=== PATIENT | male | born 1960 | race Caucasian/White ===

== ENCOUNTER 2017-09-06 15:22 | Inpatient (IN) | payer MEDICAID ==
[2017-09-06] MEDS ORDERED: IPRATROPIUM/ALBUTEROL 3 ML DEYVIAL ONE (15:42)
[2017-09-06 15:59] LABS: PLATELET COUNT 227 10^3/uL (150-400)
--- NOTE | 2017-09-06 15:59 | EDPHY ---
H & P Smoking Status: Former smoker Time Seen by Provider: 09/06/17 15:36 HPI/ROS: CHIEF COMPLAINT: Dyspnea HISTORY OF PRESENT ILLNESS: 57-year-old male presents to the emergency department by private vehicle feeling short of breath. The patient has a history of HIV and has a history of COPD. He is on 3 L of continuous oxygen. He recently establish care with [facility] who restarted him on his HIV medication, Descovy and Tivicay. He has taken these medications in the past, however since restarting his medications last week he feels acutely more short of breath. He has not noticed any fevers or chills. He states that he has felt short of breath and has had ongoing cough for several weeks. He had pneumonia in May of 2017. He feels that his dyspnea has been getting acutely worse. He is unable to walk down the kelly to his bathroom without becoming short of breath and having to hold onto something. He did receive a flu shot this year. REVIEW OF SYSTEMS: Constitutional: No fever, no chills. Eyes: No double or blurry vision. ENT: No sore throat. Respiratory: Cough, shortness of breath Cardiac: No chest pain. Gastrointestinal: No abdominal pain, vomiting or diarrhea. Genitourinary: No dysuria. Musculoskeletal: No neck or back pain. Skin: No rashes. Neurological: No headache. (Latisha Cobb) Past Medical/Surgical History: HIV, COPD, on 3L continuous O2 (Latisha Cobb) Social History: Single (Latisha Cobb) Physical Exam: General Appearance: Alert, no distress. 141/90, 100% on 4 L of nasal cannula oxygen, heart rate 104, respirations 26. Patient is tachypneic. Eyes: Pupils equal and round. Extraocular motions are all intact. ENT: Mouth: Mucous membranes moist. Respiratory: Occasional expiratory wheeze. Decreased breath sounds throughout. Cardiovascular: Regular rate and rhythm. Gastrointestinal: Abdomen is soft and nontender, no masses, no rebound or guarding, bowel sounds normal. Neurological: Alert and oriented x 3, cranial nerves II through XII grossly intact Skin: Warm and dry, no rashes. Musculoskeletal: Nontender to palpate along the cervical, thoracic or lumbar spine. Neck is supple. Extremities: Full range of motion and no peripheral edema. Psychiatric: Patient is oriented X 3, there is no agitation. (Latisha Cobb) Constitutional: Initial Vital Signs Temperature (C) 36.4 C 09/06/17 15:32 Heart Rate 104 H 09/06/17 15:32 Respiratory Rate 26 H 09/06/17 15:32 Blood Pressure 141/90 H 09/06/17 15:32 O2 Sat (%) 100 09/06/17 15:32 O2 Delivery Mode Nasal Cannula O2 (L/minute) 4 Allergies/Adverse Reactions: sulfamethoxazole [From Bactrim] Allergy (Intermediate, Verified 09/07/17 13:30) Rash trimethoprim [From Bactrim] Allergy (Intermediate, Verified 09/07/17 13:30) Rash Home Medications: Medication Instructions Recorded Albuterol [Proventil Inhaler HFA 1 - 2 puffs IH Q4H PRN 09/06/17 (*)] Atovaquone 1,500 mg PO HS 09/06/17 Emtricitabine/Tenofov Alafenam 1 each PO HS 09/06/17 [Descovy 200-25 mg Tablet] Tivicay 50 Mg Tablet 50 mg PO HS 09/06/17 Medical Decision Making - Diagnostics Imaging: Discussed imaging studies w/ animal breeder Radiologist, I viewed and interpreted images myself ED Course/Re-evaluation: Patient was also seen examined by Dr. Tatyana Miller. Patient received DuoNeb followed by albuterol nebulizer. 125 mg of IV Solu- Medrol has been ordered. Patient had rising creatinine 1.7 compared to 1.4 from 08/24/2017. Patient will be admitted to the hospitalist. Dr. Samantha Youngblood, infectious disease provider, also evaluated the patient in the emergency department. (Latisha Cobb) Differential Diagnosis: Shortness of breath including but not limited to pulmonary infectious process, COPD, asthma, pulmonary embolus and congestive heart failure. (Latisha Cobb) Other Provider: I have evaluated and participated in the management of this patient. My co- signature indicates that I have reviewed this chart and that I agree with the findings and the plan of care as documented. My personal history and physical findings include: 57-year-old male with HIV/aids, COPD, and chronic renal insufficiency who presents with worsening shortness of breath. He is relatively new to [facility] and was recently started on antiviral medications--Descovy and Tivicay. It is not clear what medications he has taken in the past for his HIV. He denies fever, change in cough, or chest pain. On examination he is tachypneic and very mildly tachycardic. His heart is regular. Lungs have distant breath sounds and scattered wheezes. He is in the midst of a breathing treatment at the time of my examination. Abdomen is soft and nontender. He has scarring on his right upper back related to a shingles episode--this area remains hypersensitive to touch. After review of radiographic studies and laboratory studies I suspect that this presentation is a COPD exacerbation. He is receiving nebulizers and Solu-Medrol in the emergency department. Other considerations are infection with atypicals being of concern. Chest x-ray shows hyperexpansion, a bleb on the right, pulmonary nodule; no infiltrate. He is seen in the emergency department by Dr. Samantha Youngblood. At this time of antibiotics are not recommended. He states that he has had similar symptoms in the past when starting anti-retroviral medications and it is possible that recent institution of these medications as prompted his worsening respiratory failure. He is also noted to have worsening renal insufficiency. I suspect dehydration. He is being admitted to the hospitalist service. (Tatyana Miller) - Data Points Laboratory Results: Laboratory Results 09/06/17 15:51 09/06/17 15:51 Microbiology Results: MICROBIOLOGY 09/06/17 14:50 Nasal, Sinus - Swab Respiratory Panel (PCR) - Final No Organism Detected Medications Given: Albuterol/Ipratropium (Duoneb) 3 ml IH Q6 CHONG Stop: 03/06/18 00:00 Last Admin: 09/08/17 03:49 Dose: 3 ml Atovaquone (Mepron) 1,500 mg PO HS CHONG Stop: 10/06/17 20:59 Last Admin: 09/07/17 19:46 Dose: 1,500 mg Enoxaparin Sodium (Lovenox) 40 mg SC DAILY CHONG Stop: 03/06/18 08:59 Last Admin: 09/07/17 08:17 Dose: Not Given Sodium Chloride (Ns) 1,000 mls @ 100 mls/hr IV CONT CHONG Stop: 03/05/18 18:44 Last Admin: 09/07/17 19:46 Dose: 1,000 mls Miscellaneous Medication (Non-Formulary) 0 ea PO DAILY CHONG Stop: 03/06/18 13:29 Last Admin: 09/07/17 14:25 Dose: 25 mg Miscellaneous Medication (Non-Formulary) 0 ea PO DAILY CHONG Stop: 03/06/18 13:29 Last Admin: 09/07/17 14:25 Dose: 50 mg Prednisone (Prednisone) 40 mg PO DAILY CHONG Stop: 03/06/18 08:59 Last Admin: 09/07/17 08:15 Dose: 40 mg Discontinued Medications Albuterol (Proventil Neb) 3 ml IH EDNOW ONE Stop: 09/06/17 16:45 Last Admin: 09/06/17 16:55 Dose: 3 ml Albuterol/Ipratropium (Duoneb) 3 ml IH EDNOW ONE Stop: 09/06/17 16:02 Last Admin: 09/06/17 16:10 Dose: 3 ml Sodium Chloride (Ns) 1,000 mls @ 0 mls/hr IV ONCE ONE PRN Reason: Wide Open Stop: 09/06/17 16:25 Last Admin: 09/06/17 16:35 Dose: 1,000 mls Methylprednisolone Sodium Succinate (Solu-Medrol) 125 mg IVP EDNOW ONE Stop: 09/06/17 16:44 Last Admin: 09/06/17 16:55 Dose: 125 mg Departure - Departure Disposition: [facility] Inpatient Acute Clinical Impression: COPD exacerbation, HIV disease Dyspnea Qualifiers: Dyspnea type: unspecified Qualified Code(s): R06.00 - Dyspnea, unspecified Condition: Fair
[2017-09-06] MEDS ORDERED: IPRATROPIUM/ALBUTEROL 3 ML DEYVIAL IH ONE (16:01)
[2017-09-06] MEDS ORDERED: NS 1,000 ML IV ONE (16:24)
[2017-09-06] MEDS ORDERED: methylPREDNISolone SOD SUCC 125 MG/2 ML VIAL IVP ONE (16:43)
[2017-09-06] MEDS ORDERED: ALBUTEROL 3 ML DEYVIAL IH ONE (16:44)
--- NOTE | 2017-09-06 18:38 | GCON ---
[f rep st] CONSULTATION INFECTIOUS DISEASE CONSULTATION DATE OF CONSULTATION: 09/06/2017 REFERRING PHYSICIAN: Acacia Pastor MD REASON FOR CONSULTATION: Management of problems related to AIDS. HISTORY OF PRESENT ILLNESS: This is a 57-year-old male who recently established primary care at the [facility], who has multiple ongoing problems related to HIV/AIDS. In addition, patient has an un derlying history of severe COPD, quitting tobacco 3 years ago. In regard to his HIV/AIDS, patient wa s diagnosed in March of 2017 with a CD4 count less than 200 with a suzanna of 31 and an initial viral load of 3 million. Exact course of initial antiretrovirals is not entirely clear, but patient came t o clinic only on 2-nuke therapy. Subsequently, patient was found to have a genotype with an M184, T6 9N, L74V, which subsequently conferred resistance to 3TC abacavir and emtricitabine. The patient was subsequently started on Descovy and Tivicay, which he started about 1 week ago. This is when he rep orts the onset of worsening shortness of breath not relieved by additional nebulizer therapies. The patient also reported that he was having trouble sleeping, but denies fevers or cough, sick contacts. No current changes in his weight. His shortness of breath was not relieved by turning his home oxy gen supplementation up. He does not have any chest pain. No new rashes. He reports resolution of o dynophagia. PAST MEDICAL HISTORY: 1. Chronic renal insufficiency, unclear etiology. Creatinine clearance in the 50s with a baseline c reatinine around 1.4. 2. COPD with a CT scan earlier this month demonstrating severe emphysema. 3. Esophageal candidiasis. Patient is just completing 2 weeks of fluconazole. 4. HIV/AIDS as per HPI. Spiculated nodule in the left upper lobe 1.7 cm that is present on the CT s can from 08/2017, but it is new from 05/2017. In addition, scan from 08/2017 has right upper lobe no dules. 5. History of shingles 5 years ago. 6. Pneumonia. SOCIAL HISTORY: Patient had former alcohol. He was born in [place] but also lived in [facility] and [place], [place]. He is currently disabled. He has used intranasal cocaine, last used age 42 . Previously 3 common-law wives, currently single. Former 1 pack per day from age [age]. Patient fletcher dominguez in [place], [place] currently. PAST SURGICAL HISTORY: None. FAMILY HISTORY: His father had a bone neoplasm, COPD, type 2 diabetes, and lung cancer. ALLERGIES: Bactrim causes a rash. MEDICATIONS: Include atovaquone 750 mg daily, Descovy 200/25 once daily, fluconazole 100 mg daily, T ivicay 50 mg daily. Also, Advair Diskus, ProAir and Spiriva. REVIEW OF SYSTEMS: A complete 10-point review of systems was performed and is negative, except as me ntioned in the HPI. PHYSICAL EXAM: VITAL SIGNS: Blood pressure 134/87, heart rate 104 initially, 100 at the time of exa m, respiratory rate 24 to 16, saturation 100% on 4 L, temperature 36.4. He has been afebrile during his short ER visit today. GENERAL: This is a mildly distressed male, splinting, sitting upright in bed with some intercostal retractions. PULMONARY: He has poor air movement and prolonged expiratory phase. ENT: Oropharynx, moist mucous membranes. No oral thrush. NECK: Supple. CARDIOVASCULAR: Tachycardic, regular rate. ABDOMEN: Soft and nontender. Bowel sounds are present. : Deferred. EXTREMITIES: No cyanosis. No lower extremity edema. NEUROLOGIC: The patient had broken speech d ue to shortness of breath, but was oriented. Moving all 4 extremities equally. SKIN: No rashes wer e noted. Noticeable scarring on the right side of his back where a prior shingles episode that is hy persensitive to touch. LABS: Syphilis IgG negative, cryptococcus negative, CMV antibody positive, CMV DNA negative. Hep B serologies and hep C serologies all negative. Last viral load was 4.5 logs. Genotype as above, toxo plasmosis antibody negative, VZV antibody positive. Creatinine on admission 1.7. AST 21, ALT 21, al kaline phosphatase 57, BUN 25, white count 3.7, with a normal differential, with 59% neutrophils, 24% lymphocytes, ANC 2260, hematocrit 33, platelets of 227. IMAGING: Chest x-ray was personally reviewed by me and showed extensively expanded lung medley with a large right perihilar bleb. No focal consolidation. Prior pneumonia in the left lower lobe has re solved. ASSESSMENT AND PLAN: This is a 57-year-old male with severe chronic obstructive pulmonary disease, w manuela reports a 1-week history of worsening shortness of breath in the absence of cough and fever that h e temporally relates to the onset of his initiation of antiretrovirals. Patient states that this hap pened previously when he started an anti-retroviral regimen, but he is unclear what the combination c onsisted of. We think it could have been Descovy or Truvada plus Tivicay, and then he was subsequent ly only on Epzicom. Discussed the importance of continuing Descovy and Tivicay, despite his symptoms of shortness of breath as in the absence of superimposed infection and/or iris, shortness of breath exacerbation is not a common side effect of initiation of these drugs. Going against underlying infe ction is his lack of cough. Nonetheless, the patient has severe chronic obstructive pulmonary diseas e, and presentations could be atypical. 1. Chronic obstructive pulmonary disease exacerbation. Would continue to treat him as a chronic obs tructive pulmonary disease exacerbation. Would not initiate broad-spectrum antibiotics at this time. Reasonable to rule out viral etiology. May need to consider pulmonary consult for possible conside ration of bronchoscopy to completely rule out entity such as atypical Pneumocystis, particularly, in light of the presence of left upper lobe spiculated nodule and right upper lobe nodules that are new from May 2017. 2. Renal insufficiency, worsening, could be related to poor p.o. intake or initiation of TAF. Prima ry team is hydrating. Will recheck in the a.m. 3. Human immunodeficiency virus. Discussed the importance of continuation of antiretrovirals, barri ng issues discussed above that we need to sort out. At this point, if labs stable tomorrow, will dis cuss with general team whether to hold antiretrovirals for a couple days while we sort this out or co ntinue. 4. Esophageal candidiasis. The patient has no oral candidiasis, and no symptoms of odynophagia lidya in. Thank you for this consultation. We will continue to see the patient on a daily basis. /[id number]/MODL
[2017-09-06] MEDS ORDERED: ONDANSETRON 4 MG/2 ML VIAL IVP PRN (18:44)
[2017-09-06] MEDS ORDERED: ACETAMINOPHEN 325 MG TAB PO PRN (18:44)
--- NOTE | 2017-09-06 19:33 | GHP ---
[f rep st] HISTORY AND PHYSICAL DATE OF ADMISSION: 09/06/2017 CHIEF COMPLAINT: Shortness of breath. HISTORY: The patient is a 57-year-old male. Recently diagnosed with HIV aids in March. He was see n by a provider in [place] and started on antiretroviral treatment but these were suboptimal for unc lear reasons and not current standard of care. He recently established at [facility] and is on ne w antiretrovirals with a dramatic improvement in his viral loads on proper therapy. [facility] complaining of severe shortness of breath. The patient has history of COPD. Wears 3 L of oxygen chronically. He turns it up to 4 L at home. H e has been coughing for weeks. It has been productive in the past. He denies any chest pain, lower extremity edema or fever. He does complain of nasal congestion. He has had normal p.o. intake. PAST MEDICAL HISTORY: 1. HIV AIDS. Last CD4 count 93, which is improved from 30 upon first arriving at [facility]. 2. COPD with chronic respiratory failure. 3 L. 3. Left upper lobe and right upper lobe nodules. Being followed by CAT scan. 4. Chronic kidney disease. Baseline creatinine 1.4. 5. Recent treatment for esophageal candidiasis. MEDICATIONS: Please see computer record for full detailed list. ALLERGIES: No known drug allergies. SOCIAL HISTORY: He smoked from the time he was a teenager until 4 years ago. One pack per day. The re is no history of IV drug abuse. He did use intranasal cocaine in the distant past. No current al cohol. He lives in [place], [place] of [place], with his son who is supportive an d at baseline. REVIEW OF SYSTEMS: Complete review of systems obtained. Review of systems is negative on constituti onal, HEENT, GI, pulmonary, vascular, , hematology, skin, musculoskeletal, endocrine, psych except for positives as in HPI. FAMILY HISTORY: Reviewed. Noncontributory to presenting complaint. PHYSICAL EXAMINATION: GENERAL: Well-developed, well-nourished male, in no acute distress. VITAL SI GNS: Temperature is 36.4, pulse 104, blood pressure 141/90, saturating 100% on 4 L. Eye: Normal co njunctivae. Pupils equally round, reactive to light. ENT: Normal ears and nose. Hearing intact. N ormal lips and teeth. Oropharynx: Moist. NECK: Trachea midline. No thyromegaly. CHEST: Normal respiratory effort. LUNGS: Decreased breath sounds throughout. Occasionally, a wheeze. No rhonchi . CARDIOVASCULAR: Regular rate, rhythm. No murmur. No extremity edema. ABDOMEN: Soft, nontender . No hepatosplenomegaly. SKIN: Warm, dry, intact. No rash. MUSCULOSKELETAL: No cyanosis or club nora. Strength 5/5 upper and lower extremities. NEUROLOGIC: Cranial nerves intact. Normal sensati on to light touch. PSYCH: Alert and oriented x3. Normal affect. Normal judgment. Normal memory. LABORATORY DATA: White count 3.77. Hematocrit 33.2, platelets 227. Sodium 144, potassium 4.1, chlor rylee 100, bicarb 32, BUN 25, creatinine 1.7, glucose 111. BNP is 1680. Chest x-ray reviewed. My personal interpretation is COPD and right perihilar bleb. There is no infi ltrate. ASSESSMENT/PLAN: Problems: 1. Pjgbl-uq-hmpyxpt respiratory failure. Baseline is 3 L, now up to 5 L on arrival to the emergency room, with a respiratory rate of 26 and a heart rate of 104. I suspect he is having a chronic obstr uctive pulmonary disease exacerbation, although his breath sounds are just very diminished. I do not appreciate any wheeze at this time. My suspicion for pulmonary embolus is quite low, but I will sary ck a D-dimer and consider working up for pulmonary embolus if he does not improve. 2. Chronic obstructive pulmonary disease exacerbation. We will continue steroids and nebulizers and check a respiratory PCR. 3. Human immunodeficiency virus, acquired immune deficiency syndrome. Last CD4 count 94. Dr. Youngblood saw him in the emergency room and I have personally spoke with her regarding the plan of care. She wishes to hold antiretroviral treatment at this time. 4. Plery-it-yhdqfzi kidney disease. Baseline creatinine 1.4. We will hydrate overnight with intrav enous fluids and recheck in the morning. 5. Left upper lobe and right upper lobe nodules. Per Dr. Youngblood, these are suspicious to be infecti ous rather than neoplasm, as I believe they are relatively new onset. He does, however, have a smoki ng history. Per Dr. Youngblood, consider pulmonary consultation during this hospitalization for bronchos copy. CODE STATUS: Full. ADMISSION STATUS: Will admit to observation, although I think high likelihood he will need a longer stay. DVT PROPHYLAXIS: He is high risk. We will place him on subcu Lovenox. /[id number]/MODL
[2017-09-06] MEDS: NS 1,000 ML IV SCH (20:03)
[2017-09-06] MEDS: ATOVAQUONE 750 MG/5 ML PO SCH (20:09)
--- NOTE | 2017-09-06 20:18 | CPEKG ---
Heart Rate: 106 RR Interval: 566 P-R Interval: 160 QRSD Interval: 96 QT Interval: 348 QTC Interval: 463 P [place]: 73 QRS [place]: -36 T Wave [place]: -10 EKG Severity - ABNORMAL ECG - EKG Impression: SINUS TACHYCARDIA EKG Impression: PAIRED VENTRICULAR PREMATURE COMPLEXES EKG Impression: LEFT AXIS DEVIATION EKG Impression: BORDERLINE T ABNORMALITIES, INFERIOR LEADS AND INFERIOR Q WAVES Electronically Signed By: Mesha Elam 07-Sep-2017 14:24:14
[2017-09-06] MEDS: IPRATROPIUM/ALBUTEROL 3 ML DEYVIAL IH SCH (23:29)
[2017-09-07 05:44] LABS: PLATELET COUNT 200 10^3/uL (150-400)
[2017-09-07] MEDS: IPRATROPIUM/ALBUTEROL 3 ML DEYVIAL IH SCH ×3 (05:51→16:13)
[2017-09-07] MEDS: NS 1,000 ML IV SCH ×2 (08:15→19:46)
[2017-09-07] MEDS: predniSONE 20 MG TAB PO SCH (08:15)
[2017-09-07] MEDS: ENOXAPARIN 40 MG/0.4 ML SYR SC SCH (08:17)
[2017-09-07] MEDS ORDERED: ATOVAQUONE 750 MG/5 ML PO SCH (09:00)
--- NOTE | 2017-09-07 12:14 | ASMTCASEMG ---
Living Arrangements What is your living Answers: Alone arrangement? Who do you live with? Type Of Residence What kind of residence do Answers: House you live in? Discharge Plan Comments Coordination Status Comments Notes: Pt is a 57 y/o man admitted for shortness of breath. Pt was recently diagnosed w/ HIV. Pt is a beacon pt. Pt wears 3-4L of o2 at baseline. PT has been ordered and awaiting recommendations. Needs are TBD at this time. CM to follow. Plan:TBD Date Signed: 09/07/2017 12:13 PM Electronically Signed By:JEANIE Pepper
--- NOTE | 2017-09-07 13:23 | PCMIDPN ---
Assessment/Plan: #COPD exacerbation - much better! Appreciate IM management. On no antibiotics. #HIV/AIDS: continue Tivicay/Descovy, PCP ppx with Mepron, --added on Tspot for TB screen needed for outpatient care --rechecked CD4/VL, only on ARV 1 week and now history of decline x 2 weeks, doubt IRIS mediating pulmonary sx #Acute on chronic renal failure: suspect volume depletion. No dose adjustment of descovy at this point. Cr a little better overnight #ISIS spiculated nodule: crypto/histo/toxo neg; --add on cocci for completeness --unless decline in resp status, repeat CT in 3 months --hold off on pulmonary consult with significant improvement in resp status overnight Subjective: patient feeling better, able to speak in complete sentences. Endorses wanting to take HIV meds, prefers to take now and then move to AM. Dry cough Now describes 2 weeks of worsening SOB (vs yesterday 1 week) Objective: Vital Signs Temp Pulse Resp BP Pulse Ox 36.6 C 84 18 111/85 H 99 09/07/17 10:39 09/07/17 10:39 09/07/17 10:39 09/07/17 10:39 09/07/17 10:39 Laboratory Results 09/07/17 05:28 09/07/17 05:28 09/06/17 09/07/17 09/08/17 05:59 05:59 05:59 Intake Total 450 Output Total 700 Balance -250 - Physical Exam General Appearance: alert EENT: other (MMM), No thrush Respiratory: other (generally poor air movement but better than yesterday; tiny bit of residual retractions.), No respiratory distress, No wheezing Neck: supple Cardiac/Chest: regular rate, rhythm Extremities: No pedal edema Abdomen: non-tender, soft Skin: No rash Neuro/Psych: alert, normal mood/affect, oriented x 3 - Time Spent With Patient Time Spent with Patient: greater than 35 minutes (Care coordinated with Dr. Phelps) Time Spent with Patient: Greater than 35 minutes spent on this patients care, greater than 50% of time spent counseling, educating, and coordinating care regarding the above mentioned plan. ICD10 Worksheet Patient Problems: Problems Problem Status Onset COPD exacerbation Acute Dyspnea Acute HIV disease Acute
--- NOTE | 2017-09-07 14:11 | HOSPPROG ---
Hospitalist Progress Note Assessment/Plan: DIAGNOSES: -acute hypoxemic respiratory failure -acute COPD exacerbation -low suspicion of acute infectious illness causing this episode, consider also possible immune reconstitution syndrome on recently started antiretrovirals -acute renal failure, likely due to dehydration and nausea vomiting -AIDS on new anti retroviral therapy -normocytic anemia, suspect due to his AIDS in related conditions -history of candidal esophagitis -concern for possible MAC infection -normocytic anemia likely due to his AIDS and illnesses related to that I visited the patient together with Dr. Samantha Youngblood today and reviewed the case with her in detail The patient has some improvement in his respiratory failure today but still quite short of breath with minimal exertion and some dyspnea at rest persists Renal failure is slightly better today Negative for influenza, and respiratory pathogen panel negative, Other infectious studies remain pending at present PLANS: Continue current steroids and bronchodilators Continue off antibiotics at this time Continue current antiretrovirals at this time Increase activity as able Continue IV hydration and follow renal function closely Continue prophylactic Mepron Follow anemia closely SUBJECTIVE: Patient notices improvement in his breathing today, but still fairly short of breath No cough, chills, sweats, chest pain, leg pain Appetite is better OBJECTIVE Vitals reviewed: Stable without fever, still requiring 4 L oxygen Exam: alert oriented looks quite fatigued and tired skin warm dry color ok resps mildly labored lungs severely diminished but otherwise clear BSs heart regular abd soft nondistended nontender, bowel sounds present limbs warm, no edema iv site ok Lab data: Creatinine still elevated at 1.6 little change from yesterday Electrolytes stable White blood cell count lower but neutrophils still in normal range Anemia is worse with hemoglobin of 8 Objective: Vital Signs Temp Pulse Resp BP Pulse Ox 36.7 C 93 18 130/89 H 98 09/07/17 14:06 09/07/17 14:06 09/07/17 14:06 09/07/17 14:06 09/07/17 14:06 Laboratory Results 09/07/17 05:28 09/07/17 05:28 09/06/17 09/07/17 09/08/17 06:59 06:59 06:59 Intake Total 450 Output Total 700 Balance -250 - Time Spent With Patient Time Spent with Patient: greater than 35 minutes Time Spent with Patient: Greater than 35 minutes spent on this patients care, greater than 50% of time spent counseling, educating, and coordinating care regarding the above mentioned plan. ICD10 Worksheet Patient Problems: Problems Problem Status Onset COPD exacerbation Acute Dyspnea Acute HIV disease Acute
[2017-09-07] MEDS: DESCOVY PO SCH (14:25)
[2017-09-07] MEDS: ATOVAQUONE 750 MG/5 ML PO SCH (19:46)
[2017-09-08] MEDS: IPRATROPIUM/ALBUTEROL 3 ML DEYVIAL IH SCH ×4 (01:36→17:54)
[2017-09-08 09:03] LABS: PLATELET COUNT 189 10^3/uL (150-400)
[2017-09-08] MEDS: DESCOVY PO SCH (09:03)
[2017-09-08] MEDS: predniSONE 20 MG TAB PO SCH (09:03)
[2017-09-08] MEDS: ENOXAPARIN 40 MG/0.4 ML SYR SC SCH ×2 (09:05→09:07)
--- NOTE | 2017-09-08 09:46 | PDMN ---
Medical Necessity Medical necessity: Change to IP, as of 09/07/17, per MD; los >2 mn for ongoing management of hypoxemic respiratory failure, COPD exacerbation, possible immune reconstitution syndrome on antiretrovirals, acute renal failure, possible MAC & normocytic anemia; pt not stable, admit for further monitoring, IVFs & respiratory support/meds; hx HIV/AIDs, COPD w/chronic respiratory failure, bilateral upper lobe nodules, CKD & recent tx for esophageal candidiasis; per progress note & order 09/07/17
[2017-09-08 16:38] LABS: %CD3 (T CELLS) 87 % (58-86); %CD4 (T CELLS) 10 % (32-64); %CD8 (T CELLS) 76 % (11-40); 4/8 RATIO 0.1 (>=0.9); CD3 (T CELLS) 376 cells/mcL (550-2202); CD4 (T CELLS) 42 cells/mcL (365-1437); CD45 TOTAL LYMPH COUNT 0.43 thou/mcL (0.82-2.84); CD8 (T CELLS) 325 cells/mcL (117-846)
--- NOTE | 2017-09-08 19:32 | HOSPPROG ---
Hospitalist Progress Note Assessment/Plan: DIAGNOSES: -acute hypoxemic respiratory failure -acute COPD exacerbation -low suspicion of acute infectious illness causing this episode, consider also possible immune reconstitution syndrome on recently started antiretrovirals -acute renal failure, likely due to dehydration and nausea vomiting -AIDS on new anti retroviral therapy -normocytic anemia, suspect due to his AIDS in related conditions -history of candidal esophagitis -concern for possible MAC infection -normocytic anemia likely due to his AIDS and illnesses related to that Overall better than when he arrived but still on same O2, still with significant dyspnea at rest PLANS: Continue current steroids and bronchodilators Continue off antibiotics at this time Continue current antiretrovirals at this time Increase activity as able Continue IV hydration and follow renal function closely, repeat Na Continue prophylactic Mepron Follow anemia closely SUBJECTIVE: states no real improvement in his breathing today No cough, chills, sweats, chest pain, leg pain Appetite is better OBJECTIVE Vitals reviewed: Stable without fever, still requiring 4 L oxygen Exam: alert oriented looks quite fatigued and tired skin warm dry color ok resps mildly labored lungs severely diminished but otherwise clear BSs heart regular abd soft nondistended nontender, bowel sounds present limbs warm, no edema iv site ok Lab data: Creatinine still elevated with slight improvement Na remains high cbc stable still w anemia Objective: Vital Signs Temp Pulse Resp BP Pulse Ox 36.8 C 88 18 144/85 H 94 09/08/17 15:23 09/08/17 17:50 09/08/17 17:50 09/08/17 15:23 09/08/17 17:50 Laboratory Results 09/08/17 08:41 09/08/17 08:41 09/07/17 09/08/17 09/09/17 06:59 06:59 06:59 Intake Total 1710 1200 Output Total 300 775 Balance 1410 425 ICD10 Worksheet Patient Problems: Problems Problem Status Onset COPD exacerbation Acute Dyspnea Acute HIV disease Acute
[2017-09-08] MEDS: ATOVAQUONE 750 MG/5 ML PO SCH (20:40)
[2017-09-09] MEDS: IPRATROPIUM/ALBUTEROL 3 ML DEYVIAL IH SCH ×2 (03:05)
[2017-09-09 08:13] VITALS: BP 131/88; TEMP 97.6
[2017-09-09] MEDS ORDERED: guaiFENesin 600 MG TAB.ER PO SCH (09:00)
[2017-09-09] MEDS: predniSONE 20 MG TAB PO SCH (09:44)
[2017-09-09] MEDS: DESCOVY PO SCH (09:44)
--- NOTE | 2017-09-09 10:14 | PDIAF ---
- Diagnosis Diagnosis: COPD, HIV/AIDS Code Status: Full Code - Medication Management Discharge Medications: Medications to Continue on Transfer Albuterol [Proventil Inhaler HFA (*)] 1 - 2 puffs IH Q4H PRN 09/06/17 [Last Taken Unknown] Atovaquone 1,500 mg PO HS 09/06/17 [Last Taken 09/05/17] Emtricitabine/Tenofov Alafenam [Descovy 200-25 mg Tablet] 1 each PO HS 09/06/17 [Last Taken 09/05/17] Tivicay 50 Mg Tablet 50 mg PO HS 09/06/17 [Last Taken 09/05/17] Acetaminophen [Tylenol 325mg (*)] 650 mg PO Q4 PRN tab 09/09/17 [Last Taken Unknown] Albuterol Sulfate [ALBUTEROL SULFATE] 0.63 mg IH Q3H PRN #90 vial.neb 09/09/17 [ Last Taken Unknown] Ipratropium/Albuterol [Duoneb (*)] 3 ml IH QID #120 deyvial 09/09/17 [Last Taken Unknown] guaiFENesin [Mucinex 600 MG (*)] 1,200 mg PO BID #60 tab.er 09/09/17 [Last Taken Unknown] predniSONE 40 mg PO DAILY #16 tablet 09/09/17 [Last Taken Unknown] Discharge Medications: Refer to the Discharge Home Medication list for PRN reason. PICC Care - Routine: N/A - Orders Services needed: Registered Nurse, Certified Executive Housekeeper, Master Hadoop Architect Isolation Type: None Oxygen: 3-4 LPM Diet Recommendation: no restrictions on diet - Follow Up Care Current Providers and Referrals: WILDER CONROY [Other] - As per Instructions Giorgio Gao MD [Medical Doctor] - Tierra Cook MD [Medical Doctor] -
[2017-09-09] MEDS: ENOXAPARIN 40 MG/0.4 ML SYR SC SCH (10:19)
--- NOTE | 2017-09-09 10:20 | PCMIDPN ---
Assessment/Plan: 1. COPD: Continue steroid taper; will arrange for albuterol nebulizers at home. The patient already has home oxygen, but will also have social work speak to him today evaluate his needs. Will have home care also come in to evaluate the patient, and talked at length with the patient today about the fact that he cannot refuse these services if he wants to get better. Patient expressed understanding. Of note, I was able to make the patient an appointment at [facility] for pulmonology with Dr. Santoyo September 13 at 4 :00 p.m.. 2. Aids: Continue Descovy and Dolutegravir. Viral load pending. T-cell count 42. Continue Mepron for Pneumocystis prophylaxis. Patient has a follow-up appointment with Laura Hidalgo September 19 at 1:15 p.m. at the [facility] for Infectious Diseases. 09/09/17 10:15 Subjective: Long conversation with patient today. He would like to come here to see a beef specialist, as he feels that it is just disease the for him to come here as it is to go to [place] or elsewhere, and reports that he has had negative interactions at these other facilities. Ready to go home this afternoon. Son will take him home. Objective: Vital Signs Temp Pulse Resp BP Pulse Ox 36.4 C 87 24 H 131/88 H 99 09/09/17 08:00 09/09/17 08:00 09/09/17 08:00 09/09/17 08:00 09/09/17 08:00 Laboratory Results 09/08/17 08:41 09/08/17 08:41 09/08/17 09/09/17 09/10/17 05:59 05:59 05:59 Intake Total 1710 1200 Output Total 300 775 Balance 1410 425 - Physical Exam General Appearance: no apparent distress, cachetic ICD10 Worksheet Patient Problems: Problems Problem Status Onset COPD exacerbation Acute Dyspnea Acute HIV disease Acute
--- NOTE | 2017-09-09 11:00 | ASMTLACE ---
LACE Length of stay for Answers: 3 days current admission Acuity / Level of Answers: Yes Care: Did the patient have an inpatient admission? Comorbidities - select Answers: AIDS all that apply Chronic pulmonary disease # of Emergency department Answers: 0 visits in the last 6 months Score: 12 Date Signed: 09/09/2017 10:59 AM Electronically Signed By:Marry Laguna LCSW
[2017-09-09 11:09] VITALS: PULSE 79; RESP 14; O2SAT 95
[2017-09-09] MEDS ORDERED: IPRATROPIUM/ALBUTEROL 3 ML DEYVIAL IH SCH (12:00)
--- NOTE | 2017-09-09 17:49 | ASDISCHSUM ---
Discharge Information Plan Status:Home with Home Health Medically Cleared to Leave: Discharge Date:09/09/2017 01:09 PM D/C Disposition:Home Health Service ADT D/C Disposition:Home, Routine, Self-Care Projected Discharge Date:09/09/2017 11:00 AM Transportation at D/C:Family Discharge Delay Reason: Follow-Up Date:09/09/2017 11:00 AM Discharge Slot: Final Diagnosis: Placement Information Referral Type:*Home Health Care Services Referral ID:[id number] Provider Name:[facility] ([facility]) Address 1:[address] [address] Address 2: City:[place] Selection Factors: State:[place] Patient Contact Information Contact Name:IVORY Relationship:Son Address:[address] Work Phone: [place] [facility] Phone: State/Zip Code:[place] [address] Email: Financial Information Financial Class: Primary Plan Desc:[employer] Primary Plan Number:[id number] Secondary Plan Desc: Secondary Plan Number: Assessment Information [facility] Initial CM Assessment Living Arrangements What is your living Answers: Alone arrangement? Who do you live with? Type Of Residence What kind of residence do Answers: House you live in? Discharge Plan Comments Coordination Status Comments Notes: Pt is a 57 y/o man admitted for shortness of breath. Pt was recently diagnosed w/ HIV. Pt is a beacon pt. Pt wears 3-4L of o2 at baseline. PT has been ordered and awaiting recommendations. Needs are TBD at this time. CM to follow. Plan:TBD Date Signed: 09/07/2017 12:13 PM Electronically Signed By:JEANIE Pepper LACE MARY GRACE Length of stay for Answers: 3 days current admission Acuity / Level of Answers: Yes Care: Did the patient have an inpatient admission? Comorbidities - select Answers: AIDS all that apply Chronic pulmonary disease # of Emergency department Answers: 0 visits in the last 6 months Score: 12 Date Signed: 09/09/2017 10:59 AM Electronically Signed By:Marry Laguna LCSW Case Management Discharge Plan Note Case Management Discharge Discharge Order Complete? Answers: Yes Patient to Obtain Answers: via Family Medications Transportation Arranged Answers: Family/Friends Faxed Final Orders Answers: Yes Notes: via [place] Agency/Facility Transfer Answers: Yes Notes: via [place] Report Printed & Faxed to Receiving Agency Family Notified Answers: Yes Notes: [facility] Discharge Comments Notes: Pt. to d/c home today with homecare - RN, FLAT KNITTER HELPER, GLOBAL ACCOUNT EXECUTIVE ordered. Pt. consents to homecare. Dale from [facility] has accepted. Plans to visit Pt. today. SWemary called [facility] . Sebas to bring home O2 for d/c. Sebas and Pt. do not have preference for HC agency. Dale at [facility] can take case for Medicaid [place] visits. Confirmed address and phone numbers. At request of ID , printed out directions from Pt's home to [facility]. RN to give to Pt. with d/c instructions. RT setting up new nebulizer with script. Date Signed: 09/09/2017 11:15 AM Electronically Signed By:Marry Laguna LCSW Intervention Information
--- NOTE | 2017-09-10 06:29 | GDS ---
[f rep st] DISCHARGE SUMMARY DISCHARGE DIAGNOSES: 1. Acute hypoxemic respiratory failure secondary to acute exacerbation of chronic obstructive pulmon fabiola disease. 2. Chronic obstructive pulmonary disease, on 3-4 L oxygen at baseline. 3. Acute kidney injury in the setting of chronic kidney disease secondary to volume depletion. Vida pires has returned to baseline at discharge. 4. Human immunodeficiency virus with acquired immunodeficiency syndrome defining CD4 count on new an ti-retroviral therapy regimen. 5. Chronic normocytic anemia. 6. History of esophageal candidiasis. 7. Left upper lobe pulmonary nodule. Needs repeat chest CT in 3 months. CONSULTANTS: Dr. Samantha Youngblood, infectious disease. HISTORY: For details, please see the history and physical dated September 06, 2017. In brief, Mr. David mares is a 57-year-old male who was recently diagnosed with HIV in March 2017. Is currently followed by [facility] for Infectious Disease. On anti-retroviral therapy. He also has a history of COPD an d uses 3-4 L of oxygen at baseline. He presented to the emergency department with productive cough, shortness of breath, and was admitted to the hospital for COPD exacerbation. HOSPITAL COURSE: Patient was admitted to med/surg unit. He is requiring 5 L of oxygen on arrival an d is now back to his baseline of 3-4 L/minute. His age-adjusted D-dimer was negative, and pulmonary embolism was thought unlikely. He received nebulizers, steroids, antitussive therapy, and RT support . His condition seems returned to baseline. There was no evidence of bacterial infection. I discussed the case with Infectious Disease, including his left upper lobe pulmonary nodule, which i s spiculated, and infection is on the differential. I did not feel this warranted antibiotic therapy . Crypto, histo, and toxo workups were negative. Coccidioidomycosis remains pending. Unless he has a decline in respiratory status, he will need a repeat CT scan in 3 months and outpatient pulmonary consultation. On the day of discharge the patient is saturating 95% to 99% on his baseline of 3 L of oxygen. His r espiratory rate is 14. His heart rate is in the 70s. He is breathing comfortably and is stable for discharge home. DISPOSITION: Patient is discharged home with home health support including RN, HAND PACKER, and social work. FOLLOWUP: 1. Dr. Tierra Cook, infectious disease. 2. Dr. Giorgio Gao, pulmonology. 3. Primary care. DISCHARGE MEDICATIONS: Please see [facility] for complete updated outpatient medication list. New med ications on discharge include DuoNeb inhaled q.i.d., #20, no refills' albuterol nebs inhaled q.3 hour s p.r.n., #90, no refills. He is also given a prescription for nebulizer machine; guaifenesin 1200 m g p.o. b.i.d., #60, no refills; Tylenol p.r.n. He is written for prednisone taper 40 mg p.o. daily f or 2 more days, then 30 mg p.o. daily for 3 days, then 20 mg p.o. daily for 3 days, then 10 mg p.o. d aily for 3 days, then off. /[id number]/MODL
== END 2017-09-09 13:09 | disposition home or self-care (01) | DRG 189 ==
LOC: F3E 18:45 → OBSVTOIN 09-07 18:16
PROVIDERS: ADMIT Internal Medicine; ATTEND Internal Medicine
DX: J96.21 Acute and chronic respiratory failure with hypoxia (principal); B20 Human immunodeficiency virus [HIV] disease; J44.1 Chronic obstructive pulmonary disease with (acute) exacerbation; N17.9 Acute kidney failure, unspecified; D64.9 Anemia, unspecified; R91.1 Solitary pulmonary nodule; N18.9 Chronic kidney disease, unspecified; Z80.1 Family history of malignant neoplasm of trachea, bronchus and lung
CPT/HCPCS: 86359-90; 86360-90; 86635-90; 87536-90; 96374; 97161-GP; 97165-GO; G0378; J1650; J2930; J7512; J7613